=== PATIENT | male | born 1980 | race African-American/Black ===

== ENCOUNTER 2019-05-18 11:37 | Emergency (ER) | payer MEDICAID ==
[~2019-05-18] VITALS: Ht 175.3 cm; Wt 63.0 kg
[2019-05-18] MEDS ORDERED: IBUPROFEN 600MG TABLET PO ONE (12:45)
[2019-05-18 14:00] VITALS: BP 136/85
== END 2019-05-18 14:44 | disposition home or self-care (01) ==
LOC: ER 14:31
DX: S83.91XA Sprain of unspecified site of right knee, initial encounter (principal); V19.3XXA Pedal cyclist (driver) (passenger) injured in unspecified nontraffic accident, initial encounter; Y93.89 Activity, other specified; Y92.89 Other specified places as the place of occurrence of the external cause; R03.0 Elevated blood-pressure reading, without diagnosis of hypertension
CPT/HCPCS: 73560; 99283

== ENCOUNTER 2020-08-26 11:25 | Emergency (ER) | payer MEDICAID ==
[~2020-08-26] VITALS: Ht 177.8 cm; Wt 70.0 kg
[2020-08-26 12:45] VITALS: BP 140/89
== END 2020-08-26 12:45 | disposition home or self-care (01) ==
LOC: ER 11:25
DX: B09 Unspecified viral infection characterized by skin and mucous membrane lesions (principal)
CPT/HCPCS: 99283